=== PATIENT | female | born 1955 | race Hispanic/Latino ===

== ENCOUNTER → 2019-04-20 | Outpatient (CLI) | payer MEDICARE ==
[~2019-04-20] VITALS: Ht 152.4 cm; Wt 73.0 kg
[~2019-04-20] MED LIST: ATEN50TA PO; LEVO150T11 PO; METF-527 PO; REGADENOSON 0.4 MG/5 ML PF SYG IVP SCH; SIMV20TA6 PO
== END | disposition home or self-care (01) ==
LOC: SHCH 08:32
PROVIDERS: ATTEND Internal Medicine Cardiovascular Disease
DX: I25.10 Atherosclerotic heart disease of native coronary artery without angina pectoris (principal)
CPT/HCPCS: 78452; 93017; 96374; A9500 ×2; J2785

== ENCOUNTER → 2021-06-05 | Outpatient (CLI) | payer MEDICARE ==
[~2021-06-05] MED LIST changes: -REGADENOSON 0.4 MG/5 ML PF SYG IVP SCH; +SIMV-43 PO; -SIMV20TA6 PO
== END | disposition home or self-care (01) ==
LOC: RAH 12:37
PROVIDERS: ATTEND Internal Medicine
DX: M21.42 Flat foot [pes planus] (acquired), left foot (principal); M19.071 Primary osteoarthritis, right ankle and foot; M85.871 Other specified disorders of bone density and structure, right ankle and foot
CPT/HCPCS: 73630

== ENCOUNTER 2021-08-22 07:00 | Day surgery (SDC) | payer MEDICARE ==
[2021-08-17 10:57] LABS: BASOPHILS % (AUTO) 0.6 % (0.0-5.0); EOSINOPHILS % (AUTO) 2.4 % (0.0-8.0); HEMATOCRIT 38.7 % (36-48); LYMPHOCYTES % (AUTO) 20.2 % (21.0-51.0); MEAN CORPUSCULAR HEMOGLOBIN 30.9 pg (27.0-33.0); MEAN CORPUSCULAR HGB CONC 31.5 g/dL (32.0-36.0); MONOCYTES % (AUTO) 8.8 % (3.0-13.0); NEUTROPHILS % (AUTO) 67.6 % (40.0-77.0); PLATELET COUNT (AUTO) 191 K/uL (130-400); RED BLOOD CELL COUNT(AUTO) 3.95 MIL/uL (4.00-5.50); RED CELL DISTRIBUTION WIDTH 13.9 % (11.0-15.5)
[2021-08-17 11:06] LABS: INR 0.96 (0.85-1.15); PROTHROMBIN TIME 10.5 SEC (9.6-11.6)
[2021-08-17 11:08] LABS: PARTIAL THROMBOPLASTIN TIME 26.2 SEC (26.3-35.5)
[2021-08-17 11:11] LABS: CREATININE 0.7 mg/dL (0.5-1.5); POTASSIUM 3.9 mmol/L (3.5-5.1)
[~2021-08-22] VITALS: Ht 149.9 cm; Wt 69.0 kg
[2021-08-22] VITALS (9 sets, daily range): BP systolic 107–158; BP diastolic 66–84
[~2021-08-22 07:00] MED LIST changes: +0.9%NACL 1000ML 1,000 ML IV SCH; +ASPI-1443 PO; -ATEN50TA PO; +ATOR20TA65 PO; +CEFAZOLIN SODIUM 1 GM VIAL IVP SCH; +ESCI5TAB16 PO; +FOLI1 PO; +LEFL20TA18 PO; +LEVO125C4 PO; -LEVO150T11 PO; +LINA5TAB PO; +LISI10TA24 PO; -METF-527 PO; +METO50TA18 PO; +NIFE30TA98 PO; -SIMV-43 PO
[2021-08-22] MEDS ORDERED: MEPERIDINE-PF 25 MG/ML SYG ONE ×2 (08:37→09:16)
[2021-08-22] MEDS ORDERED: BUPIVACAINE/PF 0.25% 30ML VIAL IJ ONE (08:37)
[2021-08-22] MEDS ORDERED: CEFAZOLIN SODIUM 1 GM VIAL ONE (08:37)
[2021-08-22] MEDS ORDERED: MIDAZOLAM HCL 1 MG/ML 2ML VIAL ONE ×2 (08:37→09:16)
[2021-08-22] MEDS ORDERED: LIDOCAINE HCL 1% MDV 50ML VIAL ONE (08:38)
[2021-08-22] MEDS ORDERED: TRAM50TA4 PO (10:25)
[2021-08-22] MEDS ORDERED: ACETAMINOPHEN WITH CODEINE 1 TAB TAB PO PRN (10:30)
== END 2021-08-22 14:30 | disposition home or self-care (01) ==
LOC: DAH 07:00
PROVIDERS: ATTEND Internal Medicine Cardiovascular Disease
DX: I42.0 Dilated cardiomyopathy (principal); I44.2 Atrioventricular block, complete; I50.22 Chronic systolic (congestive) heart failure; I25.10 Atherosclerotic heart disease of native coronary artery without angina pectoris; I48.0 Paroxysmal atrial fibrillation; F32.9 Major depressive disorder, single episode, unspecified; Z79.01 Long term (current) use of anticoagulants; Z79.899 Other long term (current) drug therapy; Z79.82 Long term (current) use of aspirin; Z98.890 Other specified postprocedural states
CPT/HCPCS: 33264; 36415; 80048; 82948; 85025; 85610; 85730; 93005; A4215; A4216; A4221; A4222; A4223 ×3; A4606; A4663; A6258; A6402; C1882; J0690; J2175 ×2; J2250 ×2; J3490 ×2; J7030; 33229; 99156; 99157